=== PATIENT | female | born 1985 | race Caucasian/White ===

== ENCOUNTER 2020-02-23 12:26 | Emergency (ER) | payer BC ==
[2020-02-23 13:08] VITALS: BP 103/67; PULSE 74
[2020-02-23] MEDS ORDERED: Ketorolac 60 MG/2 ML SDV IVPUSH ONE ×2 (13:25→14:29)
--- NOTE | 2020-02-23 13:25 | EDM.PDOC ---
ED HPI GENERAL MEDICAL PROBLEM - General Chief Complaint: General Stated Complaint: CHEST PAIN Time Seen by Provider: 02/23/20 13:10 Source of Information: Reports: Patient History Limitations: Reports: No Limitations - History of Present Illness INITIAL COMMENTS - FREE TEXT/NARRATIVE: 34 y/o female with intermittent two week h/o sharp stabbing central chest pain, worsened with deep inspiration and truncal movement. Had something similar approximately a year ago which was relieved with medication (prednisone). She has no abn cardiac hx. No chronic illness hx. Pain has been worse today. Hurts with every breath. Middle Chest Pain Score (Numeric/FACES): 5 - Related Data Allergies Allergy/AdvReac Type Severity Reaction Status Date / Time No Known Allergies Allergy Verified 02/23/20 13:35 Home Meds: Home Meds predniSONE [Prednisone] 20 mg PO DAILY #5 tablet 02/23/20 [Rx] Social & Family History - Tobacco Use Smoking Status *Q: Never Smoker - Caffeine Use Caffeine Use: Reports: Coffee - Recreational Drug Use Recreational Drug Use: No ED ROS GENERAL - Review of Systems Review Of Systems: See Below Constitutional: Denies: Fever, Weakness, Night Sweats, Diaphoresis HEENT: Reports: No Symptoms. Denies: Rhinitis, Sinus Problem, Throat Pain, Throat Swelling Respiratory: Denies: Shortness of Breath, Cough Cardiovascular: Reports: Chest Pain. Denies: Dyspnea on Exertion, Lightheadedness, PND Endocrine: Reports: No Symptoms GI/Abdominal: Denies: Abdominal Pain Musculoskeletal: Reports: Back Pain, Muscle Pain. Denies: Neck Pain, Shoulder Pain, Arm Pain Skin: Reports: No Symptoms Neurological: Reports: No Symptoms. Denies: Headache, Numbness, Tingling Psychiatric: Reports: No Symptoms ED EXAM, GENERAL - Physical Exam Exam: See Below Exam Limited By: No Limitations General Appearance: Alert, WD/WN, No Apparent Distress, Anxious Ears: Normal External Exam, Normal Canal, Hearing Grossly Normal Nose: Normal Inspection, Normal Mucosa Throat/Mouth: Normal Inspection, Normal Lips, Normal Teeth, Normal Gums, Normal Oropharynx, Normal Voice, No Airway Compromise, Perioral Cyanosis Head: Atraumatic Neck: Normal Inspection, Supple, Non-Tender, Full Range of Motion Respiratory/Chest: No Respiratory Distress, Lungs Clear, Normal Breath Sounds, No Accessory Muscle Use. No: Chest Non-Tender (Sharp, stabbing, fleeting chest pain with inspiration and truncal movement), Respiratory Distress Cardiovascular: Normal Peripheral Pulses, Regular Rate, Rhythm, No Edema, No Gallop, No JVD, No Murmur GI/Abdominal: Normal Bowel Sounds, Soft Back Exam: Normal Inspection, Full Range of Motion. No: CVA Tenderness (R), CVA Tenderness (L), Decreased Range of Motion, Muscle Spasm, Paraspinal Tenderness, Vertebral Tenderness Extremities: Normal Inspection, Normal Range of Motion Neurological: Alert, Oriented, CN II-XII Intact, Normal Cognition, Normal Gait Psychiatric: Normal Affect, Normal Mood, Anxious Skin Exam: Warm, Dry, Intact, Normal Color, No Rash Course - Vital Signs Last Recorded V/S: Last Vital Signs Temp 97 F 02/23/20 13:07 Pulse 74 02/23/20 13:07 Resp 18 02/23/20 13:07 BP 103/67 02/23/20 13:07 Pulse Ox 100 02/23/20 13:07 - Orders/Labs/Meds Orders: Active Orders 24 hr Category Date Time Status EKG Documentation Completion [RC] ASDIRECTED Care 02/23/20 12:58 Active Ketorolac [Toradol] Med 02/23/20 13:25 Once 15 mg IVPUSH ONETIME ONE Medication Orders Ketorolac Tromethamine (Toradol) 15 mg IVPUSH ONETIME ONE Stop: 02/23/20 13:26 Last Admin: 02/23/20 13:34 Dose: 15 mg Documented by: HERLINDA Labs: Laboratory Tests 02/23/20 02/23/20 Range/Units 13:30 13:40 WBC 6.5 D (4.0-11.0) K/uL RBC 4.77 (3.80-5.80) M/uL Hgb 14.8 (11.5-16.5) g/dL Hct 43.4 (37.0-47.0) % MCV 91 (76-96) fL MCH 31.0 (27.0-32.0) pg MCHC 34.1 (31.0-35.0) g/dL RDW 12.8 (11.0-16.0) % Plt Count 320 D (150-500) K/uL MPV 9.0 (6.0-10.0) fL Neut % (Auto) 58.3 (45.0-70.0) % Lymph % (Auto) 32.2 (20.0-40.0) % [place] % (Auto) 7.8 (3.0-10.0) % Eos % (Auto) 1.4 (1.0-5.0) % Baso % (Auto) 0.3 (0.0-0.5) % Neut # (Auto) 3.79 (2.00-7.50) K/uL Lymph # (Auto) 2.09 (1.50-4.00) K/uL [place] # (Auto) 0.51 (0.20-0.80) K/uL Eos # (Auto) 0.09 (0.04-0.40) K/uL Baso # (Auto) 0.02 (0.02-0.10) K/uL ESR 16 (0-20) mm/hr Sodium 140 (136-145) mmol/L Potassium 3.8 D (3.5-5.1) mmol/L Chloride 104 (98-107) mmol/L Carbon Dioxide 25.3 (21.0-32.0) mmol/L Anion Gap 14.5 (5.0-15.0) mmol/L BUN 10 (8-26) mg/dL Creatinine 0.81 (0.55-1.02) mg/dL Est Cr Clr Drug Dosing TNP Estimated GFR (MDRD) > 60 (>60) MLS/MIN BUN/Creatinine Ratio 12.3 (6-25) Glucose 109 H (74-100) mg/dL Calcium 8.7 (8.5-10.1) mg/dL Total Bilirubin 0.3 (0.0-1.0) mg/dL AST 19 (15-37) U/L ALT 23 (12-78) U/L Alkaline Phosphatase 62 (46-116) U/L Troponin I < 0.017 (0.000-0.060) ng/mL C-Reactive Protein 3.3 H (0.0-3.0) mg/L Total Protein 7.8 (6.4-8.2) g/dL Albumin 3.9 (3.4-5.0) g/dL Globulin 3.9 (2.2-4.2) g/dL Albumin/Globulin Ratio 1.0 (0.8-2.0) Meds: Medications Generic Name Dose Route Start Last Admin Trade Name Sangita PRN Reason Stop Dose Admin Ketorolac Tromethamine 15 mg 02/23/20 13:25 02/23/20 13:34 Toradol IVPUSH 02/23/20 13:26 15 mg ONETIME ONE Administration Discontinued Medications Generic Name Dose Route Start Last Admin Trade Name Sangita PRN Reason Stop Dose Admin Ketorolac Tromethamine Confirm 02/23/20 13:39 02/23/20 14:33 Toradol Administered 02/23/20 13:40 Not Given Dose 30 mg .ROUTE .STK-MED ONE Ketorolac Tromethamine 15 mg 02/23/20 14:29 02/23/20 14:37 Toradol IVPUSH 02/23/20 14:30 15 mg ONETIME ONE Administration - Re-Assessments/Exams Free Text/Narrative Re-Assessment/Exam: 02/23/20 14:48 Pt's sx improved initially from a 8 to 5 pain scale after 15mg Toradol and was given another 15mg Toradol with 90% resolution of pain sx. A prescription for Prednison 20mg q day prescribed for 5 days. Labs and xray normal. Departure - Departure Time of Disposition: 14:51 Disposition: DC/Tfer to [id number] Condition: Good Clinical Impression: Acute costochondritis - Discharge Information *PRESCRIPTION DRUG MONITORING PROGRAM REVIEWED*: Not Applicable *COPY OF PRESCRIPTION DRUG MONITORING REPORT IN PATIENT MANOLO: Not Applicable Prescriptions: predniSONE [Prednisone] 20 mg PO DAILY #5 tablet Referrals: PCP,None [Primary Care Provider] - Forms: ED Department Discharge Sepsis Event Note (ED) - Evaluation Sepsis Screening Result: No Definite Risk - Focused Exam Vital Signs: Vital Signs Temp Pulse Resp BP Pulse Ox 02/23/20 13:07 97 F 74 18 103/67 100 02/23/20 12:53 98 F 82 18 113/68 100 - My Orders Last 24 Hours: My Active Orders 02/23/20 12:58 EKG Documentation Completion [RC] ASDIRECTED 02/23/20 13:25 Ketorolac [Toradol] 15 mg IVPUSH ONETIME ONE - Assessment/Plan Last 24 Hours: My Active Orders 02/23/20 12:58 EKG Documentation Completion [RC] ASDIRECTED 02/23/20 13:25 Ketorolac [Toradol] 15 mg IVPUSH ONETIME ONE
[2020-02-23] MEDS: Ketorolac 30 MG/ML SDV ONE ×2 (13:35→14:33)
--- NOTE | 2020-02-23 14:00 | CR ---
DATE OF SERVICE: 02/23/2020 CLINICAL DATA: Chest pain, SOB PA and lateral Chest: No priors. The heart size is normal. The lungs are clear. No pneumothorax. No pleural effusions. No evidence of acute intra thoracic disease. MTDD
== END 2020-02-23 14:58 | disposition home or self-care (01) ==
LOC: LB.ED 12:26
DX: M94.0 Chondrocostal junction syndrome [Tietze] (principal)
CPT/HCPCS: 36415; 71046; 80053; 84484; 85025; 85651; 86140; 93005; 96374; 96376; 99285; J1885